=== PATIENT | female | born 1965 | race Caucasian/White ===

== ENCOUNTER 2018-09-23 09:17 | Emergency (ER) | payer MEDICAID ==
[~2018-09-23] VITALS: Ht 154.9 cm; Wt 76.4 kg
[2018-09-23 09:49] LABS: BASOPHILS # (AUTO) 0.1 X10'3 (0-0.2); BASOPHILS % (AUTO) 1.1 % (0-1); EOSINOPHILS # (AUTO) 0.1 X10'3 (0-0.9); EOSINOPHILS % (AUTO) 1.9 % (0-6); HEMATOCRIT 40.5 % (35.0-45.0); HEMOGLOBIN 13.6 g/dl (12.0-16.0); LYMPHOCYTES # (AUTO) 1.4 X10'3 (1.1-4.8); LYMPHOCYTES % (AUTO) 20.2 % (21-51); MEAN CORPUSCULAR HEMOGLOBIN 27.3 PG (27.0-31.0); MEAN CORPUSCULAR HGB CONC 33.5 g/dL (33.0-36.5); MEAN CORPUSCULAR VOLUME 81.4 FL (78-98); MEAN PLATELET VOLUME 7.9 FL (7.4-10.4); MONOCYTES # (AUTO) 0.8 X10'3 (0-0.9); MONOCYTES % (AUTO) 11.4 % (2-12); NEUTROPHILS # (AUTO) 4.5 X10'3 (1.8-7.7); NEUTROPHILS % (AUTO) 65.4 % (42-75); PLATELET COUNT 262 X10'3 (140-440); RED BLOOD COUNT 4.97 X10'6 (4.20-5.60); RED CELL DISTRIBUTION WIDTH 15.4 % (11.5-14.5); WHITE BLOOD COUNT 6.8 X10'3 (4.5-11.0)
[2018-09-23] MEDS ORDERED: normal saline 1000ML IV soln IVB ONE (09:50)
[2018-09-23 10:05] LABS: PROTHROMBIN TIME 9.9 SECONDS (9.0-12.0)
[2018-09-23 10:06] LABS: CLARITY,URINE CLEAR (Clear); COLOR,URINE YELLOW (Yellow); GLUCOSE, URINE NEGATIVE (Neg); KETONES,URINE NEGATIVE (Neg); LEUKOCYTE ESTERASE ,URINE SMALL (Neg); NITRITES, URINE NEGATIVE (Neg); OCCULT BLOOD,URINE SMALL (Neg); PH,URINE 5.5 (4.8-8.0); PROTEIN,URINE NEGATIVE (Neg); UROBILINOGEN,URINE 0.2 E.U/dL (0.2-1.0)
[2018-09-23 10:07] LABS: ALANINE AMINOTRANSFERASE 25 U/L (12-78); ALBUMIN 3.6 G/DL (3.4-5.0); ALBUMIN/GLOBULIN RATIO 0.8 (1.1-1.5); ALKALINE PHOSPHATASE 108 IU/L (46-116); ANION GAP 13 (8-16); ASPARTATE AMINO TRANSFERASE 20 U/L (10-37); BILIRUBIN,TOTAL 0.4 MG/DL (0.1-1.0); BLOOD UREA NITROGEN 11 MG/DL (7-18); BUN/CREATININE RATIO 12.2 (6.6-38.0); CALCIUM 9.1 MG/DL (8.5-10.1); CHLORIDE 104 MMOL/L (99-107); GLUCOSE 103 MG/DL (70-104); LIPASE 112 U/L (73-393); POTASSIUM 3.4 MMOL/L (3.5-5.1); SODIUM 138 MMOL/L (135-145); TOTAL PROTEIN 8.1 G/DL (6.4-8.2); eGFR 65 ML/MIN
[2018-09-23 10:10] LABS: UA COLLECTION TYPE CLN CATCH MIDSTREAM
[2018-09-23 10:16] LABS: URINE HCG NEGATIVE (NEG)
[2018-09-23 10:17] LABS: BACTERIA,URINE NONE SEEN /HPF (Neg); MUCUS STRANDS NONE SEEN /LPF (Neg); RBC,URINE 0-2 /HPF (0-2); SQUAMOUS EPITHELIAL CELL,UR FEW /LPF (FEW); WBC,URINE 0-4 /HPF (0-4)
[2018-09-23 12:09] VITALS: BP 138/78
== END 2018-09-23 11:39 | disposition home or self-care (01) ==
LOC: ER 09:18
DX: R19.7 Diarrhea, unspecified (principal); R11.2 Nausea with vomiting, unspecified; R10.11 Right upper quadrant pain; G89.29 Other chronic pain
CPT/HCPCS: 36415; 80053; 81001; 81025; 83690; 85025; 85610; 87088; 96360; 99283; J7030

== ENCOUNTER 2019-08-05 11:31 | Emergency (ER) | payer MEDICAID ==
[~2019-08-05] VITALS: Ht 154.9 cm; Wt 82.0 kg
[2019-08-05] MEDS ORDERED: LISI-600 PO (12:19)
[2019-08-05] MEDS ORDERED: SIMV-42 PO (12:19)
[2019-08-05] MEDS ORDERED: ondansetron/PF 4mg/2ml inj IV ONE (12:25)
[2019-08-05] MEDS ORDERED: ketorolac trometh. 30mg/ml inj. IV ONE (12:25)
[2019-08-05] MEDS ORDERED: normal saline 1000ML IV soln IVB ONE (12:25)
[2019-08-05 12:52] LABS: BASOPHILS % (AUTO) 0.4 % (0-1); EOSINOPHILS % (AUTO) 0.2 % (0-6); HEMATOCRIT 36.2 % (35.0-45.0); HEMOGLOBIN 12.1 g/dl (12.0-16.0); LYMPHOCYTES # (AUTO) 0.4 X10'3 (1.1-4.8); LYMPHOCYTES % (AUTO) 9.5 % (21-51); MEAN CORPUSCULAR HEMOGLOBIN 26.1 PG (27.0-31.0); MEAN CORPUSCULAR HGB CONC 33.5 g/dL (33.0-36.5); MEAN CORPUSCULAR VOLUME 78.1 FL (78-98); MEAN PLATELET VOLUME 8.4 FL (7.4-10.4); MONOCYTES # (AUTO) 0.6 X10'3 (0-0.9); MONOCYTES % (AUTO) 13.8 % (2-12); NEUTROPHILS # (AUTO) 3.3 X10'3 (1.8-7.7); NEUTROPHILS % (AUTO) 76.1 % (42-75); PLATELET COUNT 212 X10'3 (140-440); RED BLOOD COUNT 4.63 X10'6 (4.20-5.60); RED CELL DISTRIBUTION WIDTH 15.9 % (11.5-14.5); WHITE BLOOD COUNT 4.3 X10'3 (4.5-11.0)
[2019-08-05 13:08] LABS: ALANINE AMINOTRANSFERASE 24 U/L (12-78); ALBUMIN 3.7 G/DL (3.4-5.0); ALBUMIN/GLOBULIN RATIO 0.9 (1.1-1.5); ALKALINE PHOSPHATASE 113 IU/L (46-116); ANION GAP 10 (8-16); ASPARTATE AMINO TRANSFERASE 23 U/L (10-37); BILIRUBIN,TOTAL 0.4 MG/DL (0.1-1.0); BLOOD UREA NITROGEN 8 MG/DL (7-18); BUN/CREATININE RATIO 8.4 (6.6-38.0); CALCIUM 8.8 MG/DL (8.5-10.1); CHLORIDE 104 MMOL/L (99-107); CREATININE 0.95 MG/DL (0.40-0.90); GLUCOSE 105 MG/DL (70-104); LIPASE 73 U/L (73-393); POTASSIUM 3.6 MMOL/L (3.5-5.1); SODIUM 140 MMOL/L (135-145); TOTAL CARBON DIOXIDE 25.6 MMOL/L (24-32); TOTAL PROTEIN 7.8 G/DL (6.4-8.2); eGFR 61 ML/MIN
--- NOTE | 2019-08-05 13:08 | NUR ---
Patient stated she is unable to void at the moment
[2019-08-05 13:36] LABS: CLARITY,URINE SLIGHTLY CLOUDY (Clear); COLOR,URINE YELLOW (Yellow); GLUCOSE, URINE NEGATIVE (Neg); KETONES,URINE NEGATIVE (Neg); LEUKOCYTE ESTERASE ,URINE SMALL (Neg); NITRITES, URINE NEGATIVE (Neg); OCCULT BLOOD,URINE SMALL (Neg); PH,URINE 6.5 (4.8-8.0); PROTEIN,URINE NEGATIVE (Neg)
[2019-08-05 13:38] LABS: UA COLLECTION TYPE CLN CATCH MIDSTREAM
[2019-08-05 13:44] LABS: RBC,URINE 0-2 /HPF (0-2); WBC,URINE 0-4 /HPF (0-4)
[2019-08-05 13:45] LABS: BACTERIA,URINE FEW /HPF (Neg); MUCUS STRANDS FEW /LPF (Neg); SQUAMOUS EPITHELIAL CELL,UR MANY /LPF (FEW)
[2019-08-05 14:06] VITALS: BP 99/71
== END 2019-08-05 14:08 | disposition home or self-care (01) ==
LOC: ER 11:31
DX: K76.89 Other specified diseases of liver (principal); Q63.1 Lobulated, fused and horseshoe kidney; N17.9 Acute kidney failure, unspecified; G89.29 Other chronic pain; R11.10 Vomiting, unspecified; Z79.899 Other long term (current) drug therapy
CPT/HCPCS: 36415; 74176; 80053; 81001; 83690; 85025; 96361; 96374; 96375; 99284; J1885; J2405; J7030

== ENCOUNTER 2019-08-09 08:25 | Emergency (ER) | payer MEDICAID ==
[~2019-08-09] VITALS: Ht 154.9 cm; Wt 79.5 kg
[~2019-08-09 08:25] MED LIST: LISI-600 PO; SIMV-42 PO
[2019-08-09] MEDS ORDERED: ipratropium/albuterol 3ml nebule NEB ONE (09:00)
[2019-08-09 09:25] LABS: BASOPHILS % (AUTO) 0.5 % (0-1); EOSINOPHILS % (AUTO) 0.2 % (0-6); HEMATOCRIT 37.1 % (35.0-45.0); HEMOGLOBIN 12.5 g/dl (12.0-16.0); LYMPHOCYTES # (AUTO) 1.4 X10'3 (1.1-4.8); LYMPHOCYTES % (AUTO) 26.9 % (21-51); MEAN CORPUSCULAR HEMOGLOBIN 26.3 PG (27.0-31.0); MEAN CORPUSCULAR HGB CONC 33.7 g/dL (33.0-36.5); MEAN CORPUSCULAR VOLUME 78.1 FL (78-98); MEAN PLATELET VOLUME 8.3 FL (7.4-10.4); MONOCYTES # (AUTO) 0.7 X10'3 (0-0.9); NEUTROPHILS # (AUTO) 3.1 X10'3 (1.8-7.7); NEUTROPHILS % (AUTO) 58.4 % (42-75); PLATELET COUNT 206 X10'3 (140-440); RED BLOOD COUNT 4.76 X10'6 (4.20-5.60); RED CELL DISTRIBUTION WIDTH 16.3 % (11.5-14.5); WHITE BLOOD COUNT 5.3 X10'3 (4.5-11.0)
[2019-08-09 09:41] LABS: ALANINE AMINOTRANSFERASE 31 U/L (12-78); ALBUMIN 3.5 G/DL (3.4-5.0); ALBUMIN/GLOBULIN RATIO 0.8 (1.1-1.5); ALKALINE PHOSPHATASE 101 IU/L (46-116); ANION GAP 11 (8-16); BILIRUBIN,TOTAL 0.4 MG/DL (0.1-1.0); BLOOD UREA NITROGEN 7 MG/DL (7-18); BUN/CREATININE RATIO 7.6 (6.6-38.0); CALCIUM 8.7 MG/DL (8.5-10.1); CHLORIDE 106 MMOL/L (99-107); CREATININE 0.92 MG/DL (0.40-0.90); GLUCOSE 104 MG/DL (70-104); POTASSIUM 3.2 MMOL/L (3.5-5.1); SODIUM 144 MMOL/L (135-145); TOTAL CARBON DIOXIDE 27.1 MMOL/L (24-32); TOTAL PROTEIN 7.9 G/DL (6.4-8.2); eGFR 64 ML/MIN
[2019-08-09 10:03] LABS: ASPARTATE AMINO TRANSFERASE 32 U/L (10-37)
[2019-08-09] MEDS ORDERED: BENZ-16 PO (11:01)
[2019-08-09 11:02] VITALS: BP 135/92
== END 2019-08-09 11:17 | disposition home or self-care (01) ==
LOC: ER 08:26
DX: B34.9 Viral infection, unspecified (principal); M54.5 Low back pain; R10.31 Right lower quadrant pain; R05 Cough; R09.89 Other specified symptoms and signs involving the circulatory and respiratory systems; G89.29 Other chronic pain; Z79.899 Other long term (current) drug therapy
CPT/HCPCS: 36415; 71046; 80053; 85025; 87502; 87503; 94640; 94760; 99284

== ENCOUNTER 2025-03-31 11:53 | Inpatient (IN) | payer MEDICAID ==
[~2025-03-31] VITALS: Ht 157.5 cm; Wt 65.9 kg
[~2025-03-31 11:53] MED LIST changes: -LISI-600 PO; +LISI20TA28 PO
[2025-03-31] MEDS: ondansetron/PF 4mg/2ml inj IV ONE ×2 (12:35→13:44)
[2025-03-31] MEDS: normal saline 1000ml 1,000 ML IV ONE ×2 (12:35→14:21)
[2025-03-31 12:48] LABS: LEUKOCYTE ESTERASE ,URINE NEGATIVE (Neg); NITRITES, URINE NEGATIVE (Neg); OCCULT BLOOD,URINE MODERATE (Neg)
[2025-03-31 12:48] LABS: MEAN PLATELET VOLUME 8.6 FL (7.4-10.4); RED CELL DISTRIBUTION WIDTH 14.1 % (11.5-14.5)
[2025-03-31 12:50] LABS: URINE HCG NEGATIVE (NEG)
[2025-03-31 12:52] LABS: UA COLLECTION TYPE URINAL
[2025-03-31 12:53] LABS: MUCUS STRANDS FEW /LPF (Neg); SQUAMOUS EPITHELIAL CELL,UR MODERATE /LPF (FEW)
[2025-03-31 13:04] LABS: CREATININE 1.25 MG/DL (0.40-0.90); TOTAL CARBON DIOXIDE 23.6 MMOL/L (24-32); eCRCL 38 ML/MIN; eGFR 44 ML/MIN
[2025-03-31] MEDS: CefTRIAXone/D5W-Rocephin 1gm 50 ML IV ONE (13:46)
--- NOTE | 2025-03-31 13:50 | Physician Documentation ---
History of Present Illness ~ General Chief Complaint: Vomiting Stated Complaint: VOMITING Time Seen by MD: 12:09 Primary Medical Doctor: Rojas Mode of Arrival: Ambulatory History of Present Illness Initial Comments Patient who denies any significant medical history in with vomiting for 3 days. Denies any known sick contacts. No cough. Has felt like she has had some fevers and chills. No pain. Quit smoking 9 years ago. Medication Reconciliation Allergies: Coded Allergies: No Known Allergies (Unverified , 09/23/18) Scheduled Escitalopram Oxalate (Lexapro), 1 TAB PO DAILY, (Reported) Simvastatin* (Zocor*), 20 MG PO DAILY, (Reported) Discontinued Medications Lisinopril (Lisinopril), 10 MG PO DAILY, (Reported) Discontinued Reason: Other Past Medical History Past Medical History: Hepatitis B, Chronic Pain Past Surgical History: noncontributory Alcohol Use: None Drug Use: none Lives with: Spouse Lives In: Home Review of Systems All Other Systems at this time: Reviewed and Negative Physical Exam Physical Exam Vital Signs: Temperature: 96.2, Source: Temporal, Heart Rate: 80, Respiratory Rate: 16, BP: 150/111, Pulse Oximetry: 99, Weight: 65.910 General Appearance: alert Head: normal inspection Face: normal inspection Neck: non-tender, full range of motion Respiratory: lungs clear, normal breath sounds, no respiratory distress Chest: no accessory muscle use Cardiovascular: regular rate, rhythm, no edema Gastrointestinal: non-tender Neurologic: oriented x4 Motor / Sensory: no motor deficit, no sensory deficit Psychiatric: normal mood/affect Skin: normal color, warm/dry Progress Results/Orders Results/Orders Orders - AMY BOWERS MD Cult Urine + [place] [address] (03/31/25 12:53) Page Hospitalist (03/31/25 ) Covid19 Binax Poc Result Entry (03/31/25 13:35) Culture Blood (03/31/25 13:36) Completed Orders - AMY BOWERS MD Hcg, Ur Ql (03/31/25 11:57) Cbc/Diff (03/31/25 11:57) BMP (03/31/25 11:57) Lipase (03/31/25 11:57) CMP (03/31/25 11:57) Normal Saline 1000ml (0.9% Sodium Chlori (03/31/25 12:10) Ondansetron Inj. (Zofran 4mg/2ml Vial) (03/31/25 12:10) Hs Troponin I W Calculations (03/31/25 12:10) Ua W/Microscopic, Cult If Ind (03/31/25 12:07) Ceftriaxone/V3a-Cxxcssdj 1gm (Rocephin 1 (03/31/25 13:35) Lacticsepsis (03/31/25 13:36) Ondansetron Inj. (Zofran 4mg/2ml Vial) (03/31/25 13:40) Prochlorperazine Inj (Compazine Inj) (03/31/25 14:10) Stat Ekg (03/31/25 14:11) Normal Saline 1000ml (0.9% Sodium Chlori (03/31/25 14:15) C-Reactive Protein (03/31/25 12:23) Medications Received in ER Medications (Trade) Dose Ordered Sig/Kerwin Route PRN Reason Start Time Stop Time Status Last Admin Dose Admin Sodium Chloride 1,000 ml @ 1,000 mls/hr ONCE ONCE IV 03/31/25 12:10 03/31/25 13:09 DC 03/31/25 12:35 1,000 MLS/HR (Zofran 4mg/2ml vial) 4 mg ONCE ONCE IV 03/31/25 12:10 03/31/25 12:11 DC 03/31/25 12:35 4 MG Ceftriaxone Sodium 50 ml @ 100 mls/hr ONCE ONCE IV 03/31/25 13:35 03/31/25 14:04 DC 03/31/25 13:46 100 MLS/HR (Zofran 4mg/2ml vial) 4 mg ONCE ONCE IV 03/31/25 13:40 03/31/25 13:41 DC 03/31/25 13:44 4 MG (Compazine inj) 10 mg ONCE ONCE IV 03/31/25 14:10 03/31/25 14:11 DC 03/31/25 14:19 10 MG Sodium Chloride 1,000 ml @ 1,000 mls/hr ONCE ONCE IV 03/31/25 14:15 03/31/25 15:14 DC 03/31/25 14:21 1,000 MLS/HR Sodium Chloride 1,000 ml @ 100 mls/hr Q10H IV 03/31/25 15:25 03/31/25 15:53 100 MLS/HR Vital Signs 03/31/25 03/31/25 03/31/25 03/31/25 11:54 12:07 12:25 12:53 Temp 96.2 Pulse 97 80 65 Resp 16 16 16 B/P (MAP) 155/114 150/111 (124) Pulse Ox 99 99 99 03/31/25 03/31/25 03/31/25 13:00 14:00 14:58 Pulse 70 71 64 B/P (MAP) 158/96 (116) 177/103 (127) 172/101 (124) Pulse Ox 99 98 96 Laboratory Tests Test 03/31/25 12:07 03/31/25 12:23 03/31/25 13:49 03/31/25 13:57 Urine Specimen Description Urinal Urine Color Yellow Urine Clarity Slightly cloudy Urine pH 6.0 Urine Specific [place] >=1.030 Urine Protein >=300 H Urine Glucose (UA) Negative Urine Ketones 15 H Urine Occult Blood Moderate H Urine Nitrite Negative Urine Bilirubin Small Urine Urobilinogen 0.2 Urine Leukocyte Esterase Negative Urine RBC 3-10 Urine WBC 10-20 H Urine Squamous Epithelial Cells Moderate Urine Bacteria Few Urine Coarse Granular Casts 3-5 Urine Mucus Few Urine Culture Indicated Indicated Volume Urine Centrifuged 10 ml Urine HCG, Qualitative Negative Urine Comment White Blood Count 11.4 H Red Blood Count 5.17 Hemoglobin 14.6 Hematocrit 42.1 Mean Corpuscular Volume 81.5 Mean Corpuscular Hemoglobin 28.2 Mean Corpuscular Hemoglobin Concent 34.6 Red Cell Distribution Width 14.1 Platelet Count 297 Mean Platelet Volume 8.6 Neutrophils (%) (Auto) 77.1 H Lymphocytes (%) (Auto) 12.8 L Monocytes (%) (Auto) 9.8 Eosinophils (%) (Auto) 0 Basophils (%) (Auto) 0.3 Neutrophils # (Auto) 8.8 H Lymphocytes # (Auto) 1.5 Monocytes # (Auto) 1.1 H Eosinophils # (Auto) 0.0 Basophils # (Auto) 0.0 CBC Comment D-Dimer 0.71 H D-Dimer Comment Sodium Level 138 Potassium Level 3.4 L Chloride Level 100 Carbon Dioxide Level 23.6 L Anion Gap 14 Blood Urea Nitrogen 16 Creatinine 1.25 H Estimated GFR/1.73 m2 44 BUN/Creatinine Ratio 12.8 Glucose Level 124 H Calcium Level 9.8 Total Bilirubin 1.0 Aspartate Amino Transf (AST/SGOT) 64 H Alanine Aminotransferase (ALT/SGPT) 40 Alkaline Phosphatase 83 Troponin I High Sensitivity 191 *H C-Reactive Protein 2.36 H Total Protein 8.6 H Albumin 4.4 Globulin 4.2 Albumin/Globulin Ratio 1.0 L Lipase 33 Chemistry Comments SARS-CoV-2 Antigen (Rapid) Positive *A Lactic Acid Level 2.0 Microbiology Date/Time Source Procedure Growth Status 03/31/25 12:53 Urine Urinal (Er Only) Urine Culture - Preliminary Culture received. Resulted Medical Decision Making Differential Diagnosis Patient in with vomiting for the past 3 days. Received 2 doses of 4 mg of Zofran in the ED but still had some episodes of vomiting so was given Compazine. Has received 2 L of fluids in the ED. COVID test was positive. Also urinalysis is consistent with urinary tract infection. Culture is pending. Given a g of Rocephin in the ED. initial troponin slightly elevated. That is with a creatinine of 1.2. Likely cardiac strain but 2nd troponin is pending. No chest pain or shortness of breath. EKG unremarkable. Chest x-ray negative. Patient remained stable but will admit for further treatment to the hospitalist team. Departure Disposition: ADMITTED INPATIENT Admitted to Inpatient Unit: to hospitalist Impression: Primary Impression: Vomiting Qualified Codes: R11.2 - Nausea with vomiting, unspecified Additional Impressions: Urinary tract infection Qualified Codes: N39.0 - Urinary tract infection, site not specified COVID-19 Dehydration Elevated troponin Condition: Stable Referrals: NO PRIMARY CARE PROVIDER (PCP) Signature Scribe Signature: No scribe Attestation: No scribe AMY BOWERS MD Mar 31, 2025 13:50
--- NOTE | 2025-03-31 14:18 | ELECTROCARDIOGRAPH REPORT ---
[facility] Test Date: 2025-03-31 Test Time: 14:16:15 Pat Name: АЛЕКСАНДР HARMON Department: EMERGENCY ROOM Room: Gender: F [employer] Installation Mechanic: VAHID : [id number] Requested By: AMY BOWERS Order Number: [id number] Reading MD: Measurements Intervals [place] Rate: 69 P: 55 MD: 175 QRS: 13 QRSD: 96 T: 39 QT: 430 QTc: 461 Interpretive Statements Sinus rhythm Please click the below link to view image of tracing.
[2025-03-31] MEDS ORDERED: magnesium sulf-water 2g/50mL 50 ML IV PRN (15:25)
[2025-03-31] MEDS ORDERED: magnesium sulf-water 4G/100mL 100 ML IV PRN (15:25)
[2025-03-31] MEDS ORDERED: HYDROcodone/acetaminophen 10/325mg tab PO PRN (15:25)
[2025-03-31] MEDS ORDERED: ondansetron/PF 4mg/2ml inj IV PRN (15:25)
[2025-03-31] MEDS ORDERED: magnesium hydroxide 30ml (MOM) UD suspension PO PRN (15:25)
[2025-03-31] MEDS ORDERED: metoclopramide 5 mg/ml inj IV PRN (15:25)
[2025-03-31] MEDS ORDERED: potassium Cl 40MEQ/1/2NS 520ml 520 ML IV PRN (15:25)
[2025-03-31] MEDS ORDERED: mag hydrox/Alum hydrox/simeth 30ml oral suspension PO PRN (15:25)
[2025-03-31] MEDS: PERFLUTREN PROTEIN-A MICROSPHR (Optison) 0.22 MG/ML 3ML VIAL IV ONE (15:40)
--- NOTE | 2025-03-31 15:47 | HISTORY AND PHYSICAL ---
History & Physical Providers to CC ~ History of Present Illness Reason for Admit\Complaint: Nausea and vomiting\mi\COVID History of Present Illness This is a 60-year-old female who presents to ED with a three day history of intractable nausea and vomiting and complains of fever and chills denies any abdominal pain or diarrhea. The patient does have an of 191 and a UTI likely secondary to cystitis the patient also was COVID positive. Allergies: Coded Allergies: No Known Allergies (Unverified , 09/23/18) Home Medications Home Medications Active Reported Zocor* (Simvastatin) 20 Mg Tablet 20 Mg PO DAILY 30 Days Lisinopril 20 Mg Tablet 10 Mg PO DAILY 30 Days Past Medical History Past Medical History Hepatitis-B, chronic pain Past Surgical History Surgical History Comment , tonsillectomy, tubal ligation Family History Family History: Patient reports no known family medical history. Past Social History Social History Comment Former smoker quit nine years ago, does not drink alcohol, smokes marijuana night however denies illicit drugs use. Full code status ROS ROS Except for positives in the HPI the rest of the 14 point review systems is negative Exam Vitals: Vital Signs Date Time Temp Pulse Resp B/P (MAP) Pulse Ox O2 Delivery O2 Flow Rate FiO2 03/31/25 14:58 64 172/101 (124) 96 03/31/25 12:25 16 03/31/25 11:54 96.2 General: Gen. No acute distress alert and oriented 4 Lungs clear to ascultation bilaterally, no wheezes rales or rhonchi appreciated Heart normal sinus rhythm no murmurs rubs or clicks noted Abdomen soft nontender bowel sounds are normoactive Lower extremities no clubbing cyanosis, nor edema appreciated bilaterally Diagnostic Data Last Recorded Lab Results: 03/31/25 1223 03/31/25 1223 Advance Care Planning Advanced Care plannin - 30 Minutes Problems: (1) COVID-19 Additional Plan # nausea and vomiting with chills- secondary to COVID On room air not a candidate for remdesivir Daily CRP and D-dimer is ordered Airborne isolation. 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 # hypokalemia Potassium replacement protocol # kidney disease- LENNOX versus CKD Daily CMPs ordered to monitor # UTI secondary to cystitis Urine culture IV Rocephin. # DVT prophylaxis SCDs SQ Lovenox I spent a total of 17 minutes on reviewing various resuscitative measures/ ACP with the patient at the time of admission. The patient has decided on full code status. Date of Service: Mar 31, 2025 Billing Provider: BEBE RIVERA DO Common Visit Codes: 71643-RRCAXHE INP/OBS CARE (HIGH) Secondary Visit Codes: 80959-[id number] CARE PLAN 30 MINUTES BEBE RIVERA DO Mar 31, 2025 15:47
[2025-03-31] MEDS: normal saline 1000ml 1,000 ML IV SCH (15:53)
[2025-03-31] MEDS ORDERED: ESCI10TA PO (15:57)
[2025-03-31] MEDS: potassium Cl 20 mEq SR tablet PO PRN (19:22)
[2025-03-31 20:00] VITALS: RESP 20; O2SAT 99
[2025-03-31] MEDS: K and/or MAG REPLACEMENT MC SCH (20:00)
[2025-03-31 20:45] VITALS: BP 161/98; PULSE 74; RESP 20; TEMP 98.7; O2SAT 100
[2025-03-31] MEDS: docusate sod 100mg capsule PO SCH (21:59)
[2025-03-31 22:00] VITALS: BP 165/87; PULSE 67; RESP 20; TEMP 98.3; O2SAT 99
[2025-03-31] MEDS: enoxaparin 40mg/0.4ml syringe SQ SCH (22:00)
[2025-04-01 05:00] VITALS: BP 143/84; PULSE 74; RESP 20; TEMP 98.4; O2SAT 98
[2025-04-01 06:19] LABS: MEAN PLATELET VOLUME 8.4 FL (7.4-10.4); RED CELL DISTRIBUTION WIDTH 13.7 % (11.5-14.5)
[2025-04-01 06:35] LABS: CREATININE 0.84 MG/DL (0.40-0.90); TOTAL CARBON DIOXIDE 25.5 MMOL/L (24-32); eCRCL 56 ML/MIN; eGFR 69 ML/MIN
[2025-04-01] MEDS: potassium Cl 20 mEq SR tablet PO PRN (07:41)
[2025-04-01] MEDS: ESCITALOPRAM 10 mg tablet 10 MG TABLET PO SCH (07:41)
[2025-04-01] MEDS: CefTRIAXone/D5W-Rocephin 1gm 50 ML IV SCH (07:41)
[2025-04-01 08:00] VITALS: RESP 16
[2025-04-01 10:00] VITALS: BP 166/97; PULSE 64; RESP 12; TEMP 98.4; O2SAT 97
[2025-04-01] MEDS: HYDROcodone/acetaminophen 5mg/325mg tablet PO PRN (10:51)
--- NOTE | 2025-04-01 12:22 | CARDIOLOGY REPORT ---
APPROVED REPORT EXAM: Comprehensive 2D, Doppler, and color-flow Echocardiogram. Patient Location: 4018 A Blood Pressure: 143/84 mmHg Heart Rate: 60 bpm Rhythm: Sinus Indications Myocardial Infarction COVID Positive Nausea/Vomiting UTI Filament Coil Winder: None Previous echo: None 2D Dimensions RVDd 2.9 cm LA Diam3.6 cm RA Minor3.4 cmLVOT Diameter 1.90 (1.8-2.4cm) IVC 21.61 mmCO 2.4 L/min M-Mode Dimensions RVDd 3.67 (2.1-3.2cm) Left Atrium(MM) 3.21 (2.5-4.0cm) IVSd 0.87 (0.7-1.1cm) LVDd 4.10 (4.0-5.6cm) Aortic Root 2.76 (2.2-3.7cm) PWd 0.90 (0.7-1.1cm) Aortic Cusp Exc 1.57 (1.5-2.0cm) IVSs 1.08 cm MV EPSS 0.7 (<0.5cm) LVDs 3.02 (2.0-3.8cm) FS (%) 26 % PWs 1.22 cm ESV(Teich) 35.6 ml LVEF(%) 52 (>50%) Aortic Valve AoV Peak Darius. 149.8 cm/s AoV VTI 27.9 cm AO Peak GR. 9.0 mmHg AO Mean GR. 5 mmHg LVOT VTI 23.24 cm LVOT Peak Darius. 116.3 cm/s HERBERT(VTI)/BSA 2.36 cm2/m2 HERBERT (VTI) 2.36 cm2 Mitral Valve MV E Velocity 90.4 cm/s MV Peak Gr. 4 mmHg MV DECEL TIME 232 ms MV A Velocity 73.3 cm/s MV PHT 72 ms E/A Ratio 1.2 MVA (PHT) 3.06 cm2 MV EIon564.7 cm/s TDI Lateral E' P. V12.77 cm/s E/Lateral E' 7.1 Tricuspid Valve TR P. Velocity 235 cm/s RAP ESTIMATE 15 mmHg TR Peak Gr. 22 mmHg RVSP 37 mmHg Pulmonary Vein S1 Velocity 53.9 cm/s D2 Velocity 30.6 cm/s PVa Mkihsqlg12.8 cm/s PVa Bepsedfa315 msec LEFT VENTRICLE Normal LV size and wall thickness. Basal and basal to mid anteroseptal segments appear hypokinetic. O verall systolic function is mildly reduced. Overall LVEF is 50-55%. RIGHT VENTRICLE RV is normal size and function. Estimated PA systolic pressure is 37 mmHg. ATRIA The left atrium size is normal. The right atrium size appears grossly normal. Mobile interatrial sept um - no flow detected. AORTIC VALVE Trileaflet AV appears sclerotic without stenosis or insufficiency. MITRAL VALVE Mild MV annular thickening without stenosis. Trace to mild regurgitation. TRICUSPID VALVE TV appears structurally normal with trace regurgitation. PULMONIC VALVE Grossly normal PV without stenosis, physiologic insufficiency. GREAT VESSELS The aortic root is normal in size. IVC is dilated and collapses less than 50% with inspiration. PERICARDIUM Normal pericardium. No pericardial effusion seen. Other Information Study Quality: Adequate. Patient was Covid positive. Conclusion Normal LV size and wall thickness. Basal and basal to mid anteroseptal segments appear hypokinetic. Overall systolic function is mildly reduced. Overall LVEF is 50-55%. RV is normal size and function. Estimated PA systolic pressure is 37 mmHg. The left atrium size is normal. The right atrium size appears grossly normal. Mobile interatrial se ptum - no flow detected. Trileaflet AV appears sclerotic without stenosis or insufficiency. Mild MV annular thickening without stenosis. Trace to mild regurgitation. TV appears structurally normal with trace regurgitation. Grossly normal PV without stenosis, physiologic insufficiency. Normal pericardium. No pericardial effusion seen.
[2025-04-01 18:00] VITALS: BP 164/91; PULSE 62; RESP 14; TEMP 98.7; O2SAT 98
--- NOTE | 2025-04-01 19:04 | PROGRESS NOTE ---
Daily Progress Note Providers to CC ~ Antibiotic Timeout Antibiotic Ordered?: No Subjective The patient's nausea and vomiting have resolved in her troponin is downtrending the patient denies experiencing any chest pain. Objective Vital Signs Date Time Temp Pulse Resp B/P (MAP) Pulse Ox O2 Delivery O2 Flow Rate FiO2 04/01/25 18:30 57 04/01/25 10:51 16 04/01/25 10:00 98.4 166/97 (120) 97 Room Air 03/31/25 17:00 0 Result Diagram: 04/01/25 0516 04/01/25 0516 Gen. No acute distress alert and oriented 4 Lungs clear to ascultation bilaterally, no wheezes rales or rhonchi appreciated Heart normal sinus rhythm no murmurs rubs or clicks noted Abdomen soft nontender bowel sounds are normoactive Lower extremities no clubbing cyanosis, nor edema appreciated bilaterally Coagulation Studies Laboratory Tests Test 04/01/25 15:20 D-Dimer 0.45 MG/L FEU (0-0.50) D-Dimer Comment Problem\Assessment\Plan Problems/Diagnosis: (1) COVID-19 # nausea and vomiting with chills- secondary to COVID On room air not a candidate for remdesivir Daily CRP and D-dimer is ordered Airborne isolation. # elevated high sensitivity troponin- type 2 mi versus NSTEMI Admitted on a university professor Repeat troponin is downtrending Echocardiogram demonstrated an LVEF of 50-55% and no significant findings were discovered # hypokalemia Potassium replacement protocol # LENNOX possibly secondary to vasomotor nephropathy due to volume loss caused by vomiting Resolved Daily CMPs ordered to monitor # UTI secondary to cystitis Urine culture IV Rocephin. # DVT prophylaxis SCDs SQ Lovenox Date of Service: Apr 01, 2025 Billing Provider: BEBE RIVERA DO Common Visit Codes: [id number] INP/OBS CARE(HIGH) BEBE RIVERA DO Apr 01, 2025 19:04
[2025-04-01 20:00] VITALS: RESP 14; O2SAT 98
[2025-04-01 22:00] VITALS: BP 152/84; PULSE 63; RESP 15; TEMP 98.5; O2SAT 99
[2025-04-02 06:00] VITALS: BP 152/96; PULSE 64; RESP 16; TEMP 98.2; O2SAT 98
[2025-04-02 06:44] LABS: MEAN PLATELET VOLUME 8.2 FL (7.4-10.4); RED CELL DISTRIBUTION WIDTH 13.7 % (11.5-14.5)
[2025-04-02 06:55] LABS: CREATININE 0.82 MG/DL (0.40-0.90); TOTAL CARBON DIOXIDE 23.1 MMOL/L (24-32); eCRCL 58 ML/MIN; eGFR 71 ML/MIN
[2025-04-02 10:00] VITALS: BP 157/79; PULSE 89; RESP 14; TEMP 97.4; O2SAT 98
[2025-04-02] MEDS ORDERED: ONDA-243 PO (12:01)
--- NOTE | 2025-04-02 19:07 | DISCHARGE SUMMARY ---
Discharge Summary Providers to CC ~ Discharge Summary Admission Diagnosis: Covid\ type 2 [place] vs NTEMI Hospital Course DATE OF ADMISSION: 03/31/2025 DATE OF DISCHARGE: 04/02/2025 Discharge Diagnosis\Comment: Nausea and vomiting secondary to COVID, type 2 mi, hypokalemia, LENNOX possibly secondary to vasomotor nephropathy, pyuria initially diagnosed as UTI with a cystitis which is ruled out Operations\Procedures: None Consultants: None Complications: None Condition on DC: Stable New Medications: ONDANSETRON ODT 4mg tablet (Ondansetron Odt) 4 Mg Tab.rapdis 4 MG PO Q6H PRN for nausea/vomiting, #24 TAB Continued Medications: Escitalopram Oxalate (Lexapro) 10 Mg Tablet 1 TAB PO DAILY for 30 Days, #30 TAB 0 Refills Simvastatin* (Zocor*) 20 Mg Tablet 20 MG PO DAILY for 30 Days, #30 TAB Discharge Summary: I admitted Mr. Juarez with the following HPI:This is a 60-year-old female who presents to ED with a three day history of intractable nausea and vomiting and complains of fever and chills denies any abdominal pain or diarrhea. The patient does have an of 191 and a UTI likely secondary to cystitis the patient also was COVID positive. The patient has nausea and vomiting was controlled with the Zofran and was resolved by the . The patient is was asymptomatic otherwise in regards to COVID and did not express a cough or any signs of dyspnea. The patient is chest pain-free during the entire hospitalization her initial high sensitivity troponin was 191 which downtrended to 81 that is the patient is elevated high sensitivity troponin was secondary to type 2 mi due to COVID I did recommend the patient take an 81 mg aspirin daily. The patient had an acute kidney injury which her initial creatinine was 1.25 this resolved and on day discharge was 0.8 to her acute kidney injury is possibly secondary to vasomotor nephropathy which resolved with IV fluid resuscitation. Initially it was assessed that the patient had cystitis/UTI has a white blood cell count 75290 and was treated with IV Rocephin however her white blood cell count then normalized the following day in her urine culture grew out mixed amando as the patient did not have a UTI/cystitis this was ruled out. The patient did have hypokalemia on the her serum potassium decreased to 2.7 however with a potassium replacement protocol and normalized to 3.8. Her hypokalemia was secondary to vomiting. Gen. No acute distress alert and oriented 4 Lungs clear to ascultation bilaterally, no wheezes rales or rhonchi appreciated Heart normal sinus rhythm no murmurs rubs or clicks noted Abdomen soft nontender bowel sounds are normoactive Lower extremities no clubbing cyanosis, nor edema appreciated bilaterally The patient felt ready to be discharged and was medically cleared to be discharged on 04/02/2025 The patient was seen and evaluated on day of discharge. Time spent on discharge 35 minutes *Problems/Diagnosis: (1) COVID-19 Total Time Spent on D/C: > 30 Minutes Date of Service: Apr 02, 2025 Billing Provider: BEBE RIVERA DO Common Visit Codes: [id number]-RHQ/OBS DISCH DAY >30min BEBE RIVERA DO Apr 02, 2025 19:07
== END 2025-04-02 14:05 | disposition home or self-care (01) | DRG 137 ==
LOC: ER 11:53 → ED HOLD 15:33 → ORTHO 4S 19:42
PROVIDERS: ADMIT Family Medicine; ATTEND Family Medicine
DX: U07.1 COVID-19 (principal); N17.0 Acute kidney failure with tubular necrosis; I21.A1 Myocardial infarction type 2; E86.0 Dehydration; E87.6 Hypokalemia; G89.29 Other chronic pain; Z79.899 Other long term (current) drug therapy; Z79.82 Long term (current) use of aspirin; Z87.891 Personal history of nicotine dependence
CPT/HCPCS: 36415; 80053; 81001; 81025; 83605; 83690; 83735; 84145; 84484; 85025; 85379; 86140; 87040; 87081; 87088; 87811; 93005; 93306; 96361; 96365; 96375; 99285; G0378; J0696; J0780; J1650; J2405; J7030